=== PATIENT | male | born 2000 | race Asian ===

== ENCOUNTER 2019-03-22 15:48 | Emergency (ER) | payer OTHER ==
[~2019-03-22] VITALS: Ht 170.2 cm; Wt 81.8 kg
--- NOTE | 2019-03-22 17:07 | REP ---
REASON: Pain after crush injury. PRIORS: None. There is evidence of swelling of the tip of the 4th digit. Tiny radio-densities are seen in the soft-tissues. Subtle foreign bodies or foreign bodies applied to the skin need to be clinically evaluated for. There is no definite acute fracture. Electronically Signed by Judson Foote DO 03/23/2019 02:07 P
[2019-03-22] MEDS ORDERED: LIDOCAINE 2% MDV 20 ML VIAL As Ordered ONE (18:47)
[2019-03-22] MEDS ORDERED: KEFL500C17 PO (19:11)
[2019-03-22 19:15] VITALS: BP 147/83
[2019-03-22] MEDS ORDERED: CEPHALEXIN 500 MG CAP PO ONE (19:15)
--- NOTE | 2019-03-23 15:05 | ED PDOC ---
Post-Departure Follow-Up ft [facility] faxed formal report of right finger film for fu Nilton Duncan MD March 23, 2019 15:05
== END 2019-03-22 19:26 | disposition home or self-care (01) ==
LOC: M ED 15:48
DX: S61.224A Laceration with foreign body of right ring finger without damage to nail, initial encounter (principal); S60.041A Contusion of right ring finger without damage to nail, initial encounter; W22.8XXA Striking against or struck by other objects, initial encounter; Y92.89 Other specified places as the place of occurrence of the external cause; Y93.9 Activity, unspecified; Y99.1 Military activity